=== PATIENT | female | born 1955 | race Caucasian/White ===

== ENCOUNTER → 2017-07-25 | Outpatient (CLI) | payer BC | LOC: BICRAD 08:00 | PROVIDERS: ATTEND Family Medicine | DX: E04.1 Nontoxic single thyroid nodule (principal); E04.2 Nontoxic multinodular goiter | CPT/HCPCS: 76536 ==

== ENCOUNTER 2017-12-26 10:50 | Outpatient (CLI) | payer BC ==
--- NOTE | 2017-12-26 11:50 | RAD ---
RIGHT SHOULDER 3 VIEWS: Date: 12/26/17 HISTORY: Pain. COMPARISON: None. FINDINGS: No acute fracture or malalignment. Soft tissues unremarkable. IMPRESSION: No acute fracture or malalignment. POS: [facility]
== END 2017-12-26 10:51 | disposition home or self-care (01) ==
LOC: RAD 10:50
PROVIDERS: ATTEND Family Medicine
DX: M25.511 Pain in right shoulder (principal)